=== PATIENT | female | born 1975 | race Caucasian/White ===

== ENCOUNTER 2018-07-29 09:53 | Emergency (ER) | payer OTHER ==
[2018-07-29 10:16] LABS: BILIRUBIN,URINE NEGATIVE (NEGATIVE); GLUCOSE, URINE (UA) NEGATIVE (NEGATIVE); KETONES,URINE (UA) NEGATIVE (NEGATIVE); LEUKOCYTE ESTERASE, URINE NEGATIVE (NEGATIVE); NITRITE,URINE NEGATIVE (NEGATIVE); OCCULT BLOOD,URINE NEGATIVE (NEGATIVE); PH,URINE 5.5 PH (5.0-7.5); PROTEIN,URINE NEGATIVE (NEGATIVE); UROBILINOGEN,URINE 0.2 (NORMAL) E.U./dL (NORMAL)
[2018-07-29 10:18] LABS: CLARITY,URINE CLEAR (CLEAR)
[2018-07-29 10:19] LABS: HCG UR QUAL NEGATIVE
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
--- NOTE | 2018-07-29 11:24 | CT Report ---
Reason: right contusion left retro-orbital pressure/pain Procedure Date: 07/29/2018 Accession Number: [id number] / [id number] Procedure: CT - Head W/O CPT Code: FULL RESULT: EXAM: CT HEAD WITHOUT CONTRAST EXAM DATE: 07/29/2018 11:09 AM. CLINICAL HISTORY: Right contusion post fall 1 week ago in a 43-year-old female with left retro-orbital pressure/pain. COMPARISON: None. TECHNIQUE: Multiaxial CT images were obtained from the foramen magnum to the vertex on an emergent basis. Reformats: Sagittal and coronal. IV contrast: None. In accordance with CT protocol optimization, one or more of the following dose reduction techniques were utilized for this exam: automated exposure control, adjustment of mA and/or KV based on patient size, or use of iterative reconstructive technique. FINDINGS: Parenchyma: No intraparenchymal hemorrhage. No evidence of mass, midline shift, or CT findings of infarction. Garsia-white differentiation is distinct. Extraaxial Spaces: Normal for age. No subdural or epidural collections identified. Ventricles: Normal in size and position. Sinuses and Orbits: Imaged paranasal sinuses, orbits, and mastoids show no significant abnormality. Bones: No evidence of fracture or calvarial defect. Other: None. IMPRESSION: Normal examination. No posttraumatic abnormality noted. [facility]
[2018-07-29] MEDS ORDERED: DEXAMETHASONE 10 MG/ML VIAL PO STA (11:54)
[2018-07-29] MEDS ORDERED: CHERRY SYRUP 10 ML UDC PO ONE (12:00)
[2018-07-29 12:02] VITALS: BP 151/109
== END 2018-07-29 12:01 | disposition home or self-care (01) ==
LOC: ED 09:53
DX: G44.309 Post-traumatic headache, unspecified, not intractable (principal); F07.81 Postconcussional syndrome; I10 Essential (primary) hypertension; S00.11XA Contusion of right eyelid and periocular area, initial encounter; W19.XXXA Unspecified fall, initial encounter; W22.09XA Striking against other stationary object, initial encounter; Y92.009 Unspecified place in unspecified non-institutional (private) residence as the place of occurrence of the external cause
CPT/HCPCS: 70450; 81003; 81025; 99283; A9270; 81001; 87086